=== PATIENT | male | born 1945 | race African-American/Black ===

== ENCOUNTER 2017-09-04 20:41 | Emergency (ER) | END 2017-09-05 00:03 | disposition home or self-care (01) ==

== ENCOUNTER 2017-11-20 14:14 | Emergency (ER) | END 2017-11-20 17:35 | disposition home or self-care (01) ==

== ENCOUNTER 2017-12-19 21:24 | Emergency (ER) | END 2017-12-20 03:46 | disposition short-term general hospital (02) ==

== ENCOUNTER 2018-08-02 15:17 | Inpatient (IN) | payer MEDICARE, OTHER ==
[~2018-08-02] VITALS: Ht 180.3 cm; Wt 97.4 kg
[~2018-08-02 15:17] MED LIST: LEVE100018 PO
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
[2018-08-02] MEDS ORDERED: ONDANSETRON 4 MG INJ IV PRN (20:00)
[2018-08-02] MEDS ORDERED: DOCUSATE SODIUM 100 MG CAP PO PRN (20:00)
[2018-08-02] MEDS ORDERED: BISACODYL (EC) 5 MG TAB PO PRN (20:00)
[2018-08-02] MEDS ORDERED: NACL 0.9% 3 ML SYG IV SCH (20:00)
[2018-08-02] MEDS ORDERED: ACETAMINOPHEN 325 MG TAB PO PRN (20:00)
--- NOTE | 2018-08-02 20:46 | HP ---
Date/Time of Note Date/Time of Note DATE: 08/02/18 TIME: 20:46 Assessment/Plan VTE Prophylaxis SCD applied (from Nsg): Yes Pharmacological prophylaxis: NA/contraindicated Pharm contraindication: low risk/ambulating Lines/Catheters IV Catheter Type (from Nrsg): Saline Lock Assessment/Plan Hospital Course This is a 73-year-old male being admitted to the telemetry floor for: #1 loss of consciousness: Secondary to syncope versus seizure episode versus other. Patient does report that he had urinary incontinence however he reports the ED physician that he did not. At the current time as patient is not able to give a proper history. We will work him up further. CT scan did not show any acute abnormalities. Will obtain an MRI of the brain with and without contrast to further evaluate. Seizure precautions, fall precautions. Will trend cardiac enzymes. Will obtain an echocardiogram. EKG did show bigeminy, will consult cardiology. PRN Ativan for seizures #2 history of CVA: Continue aspirin, statin #3 hypertension: Continue lisinopril #4 history of seizure disorder: Continue Keppra #5 history of prostate CA: Continue home medications. #6 DVT GI prophylaxis: SCDs, no GI prophylaxis indicated Result Diagram: 08/02/18 1608 08/02/18 1608 Results 24hrs Laboratory Tests Test 08/02/18 16:08 White Blood Count 6.4 Red Blood Count 4.51 L Hemoglobin 13.1 L Hematocrit 39.7 L Mean Corpuscular Volume 88.0 Mean Corpuscular Hemoglobin 29.0 Mean Corpuscular Hemoglobin Concent 33.0 Red Cell Distribution Width 13.1 Platelet Count 173 Mean Platelet Volume 10.4 Immature Granulocytes % 0.300 Neutrophils % 54.4 Lymphocytes % 34.5 Monocytes % 8.4 Eosinophils % 1.9 Basophils % 0.5 Nucleated Red Blood Cells % 0.0 Immature Granulocytes # 0.020 Neutrophils # 3.5 Lymphocytes # 2.2 Monocytes # 0.5 Eosinophils # 0.1 Basophils # 0.0 Nucleated Red Blood Cells # 0.0 Sodium Level 145 H Potassium Level 4.6 Chloride Level 112 H Carbon Dioxide Level 23 Anion Gap 10 Blood Urea Nitrogen 12 Creatinine 1.11 Est Glomerular Filtrat Rate mL/min Glucose Level 84 Calcium Level 9.3 Troponin I < 0.012 HPI/ROS Admit Date/Time Admit Date/Time Hx of Present Illness Chief complaint: Syncopal episode versus seizure The following history was obtained from the patient as well as from the ED physician documentation. This is a 73-year-old male presents to the emergency department from his [facility] by paramedics for evaluation of a loss of consciousness episode. Patient was in his usual state of health until prior to arrival which time he had a loss of consciousness episode. Patient apparently reported in the emergency department that day he thinks he may have had a seizure. He does report having urinary incontinence, he reported to the ED physician that he did not have any urinary incontinence.. He does get around using a wheelchair. He has had a history of a stroke in the past which resulted in weakness of the right upper and lower extremities. Allergies: NKDA Medications: See JESSICA BAIRES Const: As per HPI Eyes : No pain discharge or redness or change in visual acuity ENT: No pain, sore throat, congestion, congestion, dysphagia or discharge Respiratory: No shortness of breath, cough, sputum, wheezing, or pleuritic pain Cardiovascular: No chest pain, palpitation, PND, or edema GI : no change in appetite, abdominal pain, nausea, vomiting, diarrhea, constipation, or change in the color his stool Genitourinary: No dysuria, hematuria, flank pain , discharge or CVA tenderness Musculoskeletal: No joint pain, back pain, neck pain, restricted range of motion in neck or joints Skin: No rash, bruising or hives Neuro: As per HPI Endocrine: No polyuria, polydipsia, temperature intolerance Psych: No hallucination, depression, anxiety or suicidal ideation Additional Comments PROCEDURE: Noncontrast CT Head. CLINICAL INDICATION: Seizure TECHNIQUE: Noncontrast CT of the head was obtained. The administered radiation dose was CTDI vol = 39 mGy, DLP = 699 mGy-cm. DICOM images are available. One or more of the following dose reduction techniques were used: Automated exposure control, Adjustment of the mA and/or kV according to patient size, or Use of it erative reconstruction technique. COMPARISON: CT brain 03/21/[address] brain 12/19/2017 FINDINGS: There is no acute intracranial hemorrhage, midline shift, or mass effect. No extra-axial collection is seen. Focal encephalomalacia in the right anterior inferior frontal lobe likely chronic sequelae of prior trauma versus small chronic infarct appears stable. The cerebral bonilla-white matter differentiation otherwise appears preserved. There is mild to moderate diffuse cerebral volume loss with central predominance, stable. Minimal low attenuation in the periventricular and deep cerebral white matter is nonspecific, but suggestive of very mild chronic microangiopathic change. The basilar cisterns are preserved. There is mild diffuse cerebellar volume loss. A chronic infarct measuring approx imate 1.6 cm is redemonstrated in the right cerebellar hemisphere. There is intracranial calcific atherosclerotic disease involving the internal carotid arteries bilaterally. The partially imaged orbits are unremarkable. There is mild mucosal thickening in the left frontal sinus and left sphenoid sinus. No air-fluid level is seen. There is partial pneumatization of the petrous pyramids bilaterally. The visualized mastoid air cells are well-aerated. No acute calvarial fracture or suspicious osseous lesion is identified. IMPRESSION: 1. No evidence of an acute intracranial process. MRI brain seizure protocol may provide further evaluation, as clinically warranted. 2. Right anterior inferior frontal lobe focal encephalomalacia compatible with chronic sequelae of prior trauma versus chronic infarct, stable. 3. Right cerebellar hemisphere chronic infarct, stable. 4. Mild to moderate diffuse cerebral volume loss with central predominance, stable. 5. Evidence of very mild chronic microangiopathic cerebral white matter change. 6. Intracranial calcific atherosclerotic disease involving the internal carotid arteries bilaterally. 7. Mild mucosal thickening in the left frontal sinus and sphenoid sinus. No air- fluid level. Further findings described above. RPTAT: HRC Physician Axel Date Time Electronically viewed and signed by Physician Axel on 08/02/2018 17:19 RC/ CC: CLARICE HOWELL [id number] PROCEDURE: XR Chest. CLINICAL INDICATION: seizure TECHNIQUE: Single frontal view of the chest was obtained COMPARISON: 03/21/18 FINDINGS: The heart is enlarged. The thoracic aorta is calcified. The lungs are clear. There is no pleural effusion or pneumothorax. There are healed left posterior rib fractures. There is a healed right humeral neck fracture. RPTAT: AA IMPRESSION: Mild cardiomegaly. Calcified aorta consistent with atherosclerotic disease. .Nguyễn Herrera MD, MD Date Time Electronically viewed and signed by .Nguyễn Herrera MD, MD on 08/02/2018 16:12 .S/ CC: CLARICE HOWELL [phone] PMH/Family/Social Past Medical History Hypertension, seizure disorder, hyperlipidemia, prostate CA, history of CVA with residual right-sided weakness Medications Current Medications Levetiracetam (Keppra) 1,000 mg BID PO ; Start 08/02/18 at 21:00 IV Flush (NS 3 ml) 3 ml PER PROTOCOL IV ; Start 08/02/18 at 20:00 Ondansetron HCl (Zofran Inj) 4 mg Q6H PRN IV NAUSEA/VOMITING; Start 08/02/18 at 20:00 Acetaminophen (Tylenol Tab) 650 mg Q6H PRN PO .PAIN 1-3 OR TEMP; Start 08/02/18 at 20:00 Docusate Sodium (Colace) 100 mg Q12H PRN PO .CONSTIPATION; Start 08/02/18 at 20:00 Bisacodyl (Dulcolax) 5 mg DAILY PRN PO .CONSTIPATION; Start 08/02/18 at 20:00 Coded Allergies: No Known Allergy (Unverified , 08/02/18) Past Surgical History Aortic repair, vertebral surgery Family History Significant Family History: no pertinent family hx Social History Alcohol Use: none Smoking Status: Current every day smoker Drug Use: none Exam/Review of Systems Vital Signs Vitals Vital Signs Date Temp Pulse Resp B/P (MAP) Pulse Ox O2 O2 Flow FiO2 Time Delivery Rate 08/02/18 77 18 165/85 98 Room Air 17:25 (111) 08/02/18 98.2 15:27 Exam Exam General: patient is a pleasant male currently lying in bed in no acute distress HEENT: Atraumatic, normocephalic. The pupils are equal, round and reactive. Extraocular motor are intact Neck: Supple with full range of motion. No rigidity or meningismus Chest: Nontender Lungs: Clear to auscultation bilaterally no crackles rales or wheezing Heart: Normal S1-S2, Regular rhythm and rate. Abdomen: Soft , nontender, nondistended , bowel sounds are present. No guarding no rebound tenderness , No masses or organomegaly. No costovertebral temporal angle mass Extremities: Normal to inspection, no edema no cyanosis Neurologic: Normal mental status, speech normal, right upper and lower extremity strength 3/4 out of 5, left upper and lower extremity strength 5 out of 5 Additional Comments PROCEDURE: Noncontrast CT Head. CLINICAL INDICATION: Seizure TECHNIQUE: Noncontrast CT of the head was obtained. The administered radiation dose was CTDI vol = 39 mGy, DLP = 699 mGy-cm. DICOM images are available. One or more of the following dose reduction techniques were used: Automated exposure control, Adjustment of the mA and/or kV according to patient size, or Use of iterative reconstruction technique. COMPARISON: CT brain 03/21/[address] brain 12/19/2017 FINDINGS: There is no acute intracranial hemorrhage, midline shift, or mass effect. No extra-axial collection is seen. Focal encephalomalacia in the right anterior inferior frontal lobe likely chronic sequelae of prior trauma versus small chron ic infarct appears stable. The cerebral bonilla-white matter differentiation otherwise appears preserved. There is mild to moderate diffuse cerebral volume loss with central predominance, stable. Minimal low attenuation in the periventricular and deep cerebral white matter is nonspecific, but suggestive of very mild chronic microangiopathic change. The basilar cisterns are preserved. There is mild diffuse cerebellar volume loss. A chronic infarct measuring approximate 1.6 cm is redemonstrated in the right cerebellar hemisphere. There is intracranial calcific atherosclerotic disease involving the internal carotid arteries bilaterally. The partially imaged orbits are unremarkable. There is mild mucosal thickening in the left frontal sinus and left sphenoid sinus. No air-fluid level is seen. There is partial pneumatization of the petrous pyramids bilaterally. The visualized mastoid air cells are well-aerated. No acute calvarial fracture or suspicious osseous lesion is identified. IMPRESSION: 1. No evidence of an acute intracranial process. MRI brain seizure protocol may provide further evaluation, as clinically warranted. 2. Right anterior inferior frontal lobe focal encephalomalacia compatible with chronic sequelae of prior trauma versus chronic infarct, stable. 3. Right cerebellar hemisphere chronic infarct, stable. 4. Mild to moderate diffuse cerebral volume loss with central predominance, stable. 5. Evidence of very mild chronic microangiopathic cerebral white matter change. 6. Intracranial calcific atherosclerotic disease involving the internal carotid arteries bilaterally. 7. Mild mucosal thickening in the left frontal sinus and sphenoid sinus. No air-fluid level. Further findings described above. RPTAT: HRC Awilda Lima Physician Date Time Electronically viewed and signed by Awilda Lima, Physician on 08/02/2018 17:19 RC/ CC: CLARICE HOWELL [id number] PROCEDURE: XR Chest. CLINICAL INDICATION: seizure TECHNIQUE: Single frontal view of the chest was obtained COMPARISON: 03/21/18 FINDINGS: The heart is enlarged. The thoracic aorta is calcified. The lungs are clear. There is no pleural effusion or pneumothorax. There are healed left posterior rib fractures. There is a healed right humeral neck fracture. RPTAT: AA IMPRESSION: Mild cardiomegaly. Calcified aorta consistent with atherosclerotic disease. .Nguyễn Herrera MD, MD Date Time Electronically viewed and signed by .Nguyễn Herrera MD, MD on 08/02/2018 16:12 .S/ CC: CLARICE HOWELL [id number] K lead EKG Ventricular bigeminy Normal [place] and intervals No ST elevation, depression, or T wave inversion Impression: Bigeminy without evidence of ischemia GUZMAN KRUSE Aug 02, 2018 20:46
[2018-08-02] MEDS: LEVETIRACETAM 500 MG TAB PO SCH (22:28)
[2018-08-03] VITALS (15 sets, daily range): BP systolic 104–167; BP diastolic 53–106; PULSE 50–84; RESP 19–20; Ht 180.3 cm; Wt 97.4 kg
[2018-08-03] MEDS ORDERED: GABA300C16 PO (00:34)
[2018-08-03] MEDS ORDERED: OMEP20CA16 PO (00:34)
[2018-08-03] MEDS ORDERED: ALFU10TA2 PO (00:34)
[2018-08-03] MEDS ORDERED: ZOC10 PO (00:34)
[2018-08-03] MEDS ORDERED: LISI-471 PO (00:34)
[2018-08-03] MEDS ORDERED: ASPI-903 PO (00:34)
[2018-08-03] MEDS ORDERED: SODIUM CHLORIDE 0.45% 500 ML BAG IV* ONE (01:30)
[2018-08-03] MEDS ORDERED: LORAZEPAM 2 MG INJ IV PRN (04:30)
[2018-08-03] MEDS: PANTOPRAZOLE (EC) 40 MG TAB PO SCH (06:11)
[2018-08-03] MEDS ORDERED: NON-FORMULARY/PATIENT OWN MED (Omeprazole* 20 MG) PO SCH (09:00)
[2018-08-03] MEDS ORDERED: LISINOPRIL 20 MG TAB PO SCH (09:00)
[2018-08-03] MEDS: ASPIRIN 81 MG TAB PO SCH (09:10)
[2018-08-03] MEDS: LEVETIRACETAM 500 MG TAB PO SCH ×2 (09:10→20:54)
--- NOTE | 2018-08-03 14:02 | PN ---
Date/Time of Note Date/Time of Note DATE: 08/03/18 TIME: 13:48 Assessment/Plan VTE Prophylaxis Risk score (from Ns)>0 risk: 3 SCD applied (from Ns): Yes Pharmacological prophylaxis: LMWH Lines/Catheters IV Catheter Type (from Nrs): Saline Lock Urinary Cath still in place: No Assessment/Plan Assessment/Plan 1. Likely seizure spell, on keppra, follow up with neurology 2. Type 1 second degree AV block, asymptomatic, follow up with cardiology 3. h/o stroke, on aspirin and lipitor 4. HTN, controlled 5. h/o AVR 6. History of prostate CA 7. DVT prophylaxis: lovenox Result Diagram: 08/03/18 0542 08/03/18 0542 Results 24hrs Laboratory Tests Test 08/02/18 16:08 08/02/18 22:17 08/03/18 05:42 White Blood Count 6.4 6.9 Red Blood Count 4.51 L 4.81 Hemoglobin 13.1 L 13.7 L Hematocrit 39.7 L 41.6 L Mean Corpuscular Volume 88.0 86.5 Mean Corpuscular Hemoglobin 29.0 28.5 L Mean Corpuscular Hemoglobin Concent 33.0 32.9 Red Cell Distribution Width 13.1 12.8 Platelet Count 173 170 Mean Platelet Volume 10.4 10.7 H Immature Granulocytes % 0.300 0.300 Neutrophils % 54.4 56.0 Lymphocytes % 34.5 32.9 Monocytes % 8.4 8.9 Eosinophils % 1.9 1.6 Basophils % 0.5 0.3 Nucleated Red Blood Cells % 0.0 0.0 Immature Granulocytes # 0.020 0.020 Neutrophils # 3.5 3.9 Lymphocytes # 2.2 2.3 Monocytes # 0.5 0.6 Eosinophils # 0.1 0.1 Basophils # 0.0 0.0 Nucleated Red Blood Cells # 0.0 0.0 Sodium Level 145 H 144 Potassium Level 4.6 4.1 Chloride Level 112 H 108 Carbon Dioxide Level 23 24 Anion Gap 10 12 Blood Urea Nitrogen 12 13 Creatinine 1.11 1.00 Est Glomerular Filtrat Rate mL/min Glucose Level 84 79 Calcium Level 9.3 9.1 Troponin I < 0.012 0.012 0.017 Creatine Kinase 126 100 Creatine Kinase Index 1.0 1.2 Creatinine Kinase MB (Mass) 1.29 1.15 Hemoglobin A1c 6.0 H Magnesium Level 2.0 Total Bilirubin 0.5 Direct Bilirubin 0.00 Indirect Bilirubin 0.5 Aspartate Amino Transf (AST/SGOT) 28 Alanine Aminotransferase (ALT/SGPT) 17 Alkaline Phosphatase 172 H Total Protein 7.0 Albumin 3.6 Globulin 3.40 H Albumin/Globulin Ratio 1.05 Triglycerides Level 172 H Cholesterol Level 143 LDL Cholesterol, Calculated 79 HDL Cholesterol 30 L Cholesterol/HDL Ratio 4.7 Thyroid Stimulating Hormone (TSH) 2.760 Subjective 24 Hr Interval Summary Free Text/Dictation no headache, no chest pain, no shortness of breath Exam/Review of Systems Exam Vitals Vital Signs Date Temp Pulse Resp B/P (MAP) Pulse Ox O2 O2 Flow FiO2 Time Delivery Rate 08/03/18 97.9 70 20 137/94 97 11:41 (108) 08/03/18 Room Air 00:33 Intake and Output 08/02/18 08/02/18 08/03/18 1414:59 22:59 06:59 IntakeIntake Total 720 ml OutputOutput Total 400 ml BalanceBalance 320 ml Constitutional: alert, oriented, well developed Head: normocephalic, atraumatic Eyes: nl conjunctiva, EOMI, nl lids, PERRL ENMT: nl external ears & nose, nl lips & teeth, nl nasal mucosa & septum Neck: supple, non-tender Respiratory: clear to auscultation, normal air movement; No congested cough, No crackles/rales, No diminished breath sounds, No intercostal retraction, No labored breathing, No respirations, No tactile fremitus, No wheezing, No other Cardiovascular: regular rate and rhythm, nl pulses; No bruits, No diastolic murmur, No edema, No gallop, No irregular rhythm, No jugular venous distention (JVD), No murmurs/extra sounds, No rub, No systolic murmur, No S3, No S4, No other Gastrointestinal: soft, nl liver, spleen, non-tender Musculoskeletal: nl extremities to inspection Extremities: normal pulses; No calf tenderness, No cyanosis, No clubbing, No edema, No pitting pedal edema, No palpable cord, No tenderness, No other Neurological: SENIOR SUPPORT ANALYST II-XII intact, nl mental status, nl speech, other (RUE/RLE 4/5) Results Results 24hrs Laboratory Tests Test 08/02/18 16:08 08/02/18 22:17 08/03/18 05:42 White Blood Count 6.4 6.9 Red Blood Count 4.51 L 4.81 Hemoglobin 13.1 L 13.7 L Hematocrit 39.7 L 41.6 L Mean Corpuscular Volume 88.0 86.5 Mean Corpuscular Hemoglobin 29.0 28.5 L Mean Corpuscular Hemoglobin Concent 33.0 32.9 Red Cell Distribution Width 13.1 12.8 Platelet Count 173 170 Mean Platelet Volume 10.4 10.7 H Immature Granulocytes % 0.300 0.300 Neutrophils % 54.4 56.0 Lymphocytes % 34.5 32.9 Monocytes % 8.4 8.9 Eosinophils % 1.9 1.6 Basophils % 0.5 0.3 Nucleated Red Blood Cells % 0.0 0.0 Immature Granulocytes # 0.020 0.020 Neutrophils # 3.5 3.9 Lymphocytes # 2.2 2.3 Monocytes # 0.5 0.6 Eosinophils # 0.1 0.1 Basophils # 0.0 0.0 Nucleated Red Blood Cells # 0.0 0.0 Sodium Level 145 H 144 Potassium Level 4.6 4.1 Chloride Level 112 H 108 Carbon Dioxide Level 23 24 Anion Gap 10 12 Blood Urea Nitrogen 12 13 Creatinine 1.11 1.00 Est Glomerular Filtrat Rate mL/min Glucose Level 84 79 Calcium Level 9.3 9.1 Troponin I < 0.012 0.012 0.017 Creatine Kinase 126 100 Creatine Kinase Index 1.0 1.2 Creatinine Kinase MB (Mass) 1.29 1.15 Hemoglobin A1c 6.0 H Magnesium Level 2.0 Total Bilirubin 0.5 Direct Bilirubin 0.00 Indirect Bilirubin 0.5 Aspartate Amino Transf (AST/SGOT) 28 Alanine Aminotransferase (ALT/SGPT) 17 Alkaline Phosphatase 172 H Total Protein 7.0 Albumin 3.6 Globulin 3.40 H Albumin/Globulin Ratio 1.05 Triglycerides Level 172 H Cholesterol Level 143 LDL Cholesterol, Calculated 79 HDL Cholesterol 30 L Cholesterol/HDL Ratio 4.7 Thyroid Stimulating Hormone (TSH) 2.760 Medications Medication Current Medications Levetiracetam (Keppra) 1,000 mg BID PO Last administered on 08/03/18at 09:10; Admin Dose 1,000 MG; Start 08/02/18 at 21:00 IV Flush (NS 3 ml) 3 ml PER PROTOCOL IV ; Start 08/02/18 at 20:00 Ondansetron HCl (Zofran Inj) 4 mg Q6H PRN IV NAUSEA/VOMITING; Start 08/02/18 at 20:00 Acetaminophen (Tylenol Tab) 650 mg Q6H PRN PO .PAIN 1-3 OR TEMP; Start 08/02/18 at 20:00 Docusate Sodium (Colace) 100 mg Q12H PRN PO .CONSTIPATION; Start 08/02/18 at 20:00 Bisacodyl (Dulcolax) 5 mg DAILY PRN PO .CONSTIPATION; Start 08/02/18 at 20:00 Aspirin (Aspirin) 81 mg QAM PO Last administered on 08/03/18at 09:10; Admin Dose 81 MG; Start 08/03/18 at 09:00 Lisinopril (Zestril) 20 mg DAILY PO Last administered on 08/03/18at 09:10; Admin Dose 20 MG; Start 08/03/18 at 09:00 Pantoprazole (Protonix Tab) 40 mg DAILY@06 PO Last administered on 08/03/18at 06:11; Admin Dose 40 MG; Start 08/03/18 at 06:00 Atorvastatin Calcium (Lipitor) 10 mg DAILY@21 PO ; Start 08/03/18 at 21:00 Alfuzosin HCl (Uroxatral) 10 mg QHS PO ; Start 08/03/18 at 21:00 Lorazepam (Ativan) 1 mg Q2H PRN IV SEIZURES; Start 08/03/18 at 04:30 BHUPENDRA CAMARGO MD Aug 03, 2018 13:59
--- NOTE | 2018-08-03 15:18 | CONS ---
Assessment/Plan Assessment/Plan Hospital Course 73 M c/ prior stroke, epilepsy, and other comorbidities...who presents for evaluation following reported transient LOC. The clinical picture could be consistent w/ breakthrough seizure.. Syncope is additionally considered... The patient is noted to have a right hemiparesis w/ spasticity, which he confirms is chronic over several years... Head CT is without obvious acute intracranial pathology...though notable for predominantly right hemispheric chronic pathology.. P: OK to defer MRI brain for now Orthostatics Add Phos, UA, UDS Increase Keppra to 1.5 mg bid for now OK to continue Neurontin 600mg bid for now Ativan iv prn prolonged seizure or cluster Continue asa/statin daily for secondary stroke prevention PT/OT/ST as necessary Other management per primary Will follow clinically Consultation Date/Type/Reason Admit Date/Time Type of Consult Neurology Reason for Consultation LOC Requesting Provider: BHUPENDRA CAMARGO MD Date/Time of Note DATE: 08/03/18 TIME: 15:18 Hx of Present Illness 73 yo M with hx of stroke with residual R sided weakness and other comorbidities who presents for evaluation of a loss of consciousness. History was obtained from pt, HCP, and chart review. The pt endorses that his R side is weaker than usual. He confirms the story below: Hx of Present Illness Chief complaint: Syncopal episode versus seizure The following history was obtained from the patient as well as from the ED physician documentation. This is a 73-year-old male presents to the emergency department from his [facility] by paramedics for evaluation of a loss of consciousness episode. Patient was in his usual state of health until prior to arrival which time he had a loss of consciousness episode. Patient apparently reported in the emergency department that day he thinks he may have had a seizure. He does report having urinary incontinence, he reported to the ED physician that he did not have any urinary incontinence.. He does get around using a wheelchair. He has had a history of a stroke in the past which resulted in weakness of the right upper and lower extremities. negative unless noted otherwise in HPI Exam/Review of Systems Exam Vitals Vital Signs Date Temp Pulse Resp B/P (MAP) Pulse Ox O2 O2 Flow FiO2 Time Delivery Rate 08/03/18 61 12:00 08/03/18 97.9 20 137/94 97 11:41 (108) 08/03/18 Room Air 00:33 Intake and Output 08/02/18 08/02/18 08/03/18 1515:00 23:00 07:00 IntakeIntake Total 720 ml OutputOutput Total 400 ml BalanceBalance 320 ml Exam PE: Gen Appearance: No Apparent Distress HEENT: Normocephalic Cardiovascular: Regular rate Lungs: Clear bilaterally Abdomen: Soft Extremities: Dry NE: The patient was alert and oriented. Language was normal. Fund of knowledge was normal. Pupils were equal and reactive to light. There was no afferent pupillary defect. Visual felton were normal. Funduscopic examination was limited. Extra-ocular movements were full. Ptosis was absent. There was no nystagmus. Facial sensation was normal. Face was symmetric with normal strength. Hearing was intact. Palate movements were normal. Neck strength was normal. There was normal tongue bulk and speed of movement. Tone was normal. Muscle bulk was normal. I did not see fasciculations. R side was weak. Vibration sensation was normal. Temperature and pinprick sensation was normal. Rapid alternating movements were normal. There was no dysmetria. There was no intention tremor. Gait was deferred due to bedrest. Arm and leg reflexes were 2+ and symmetric. Cheung's sign was absent. Plantar responses were flexor. Results Result Diagram: 08/03/18 0542 08/03/18 0542 Results 24hrs Laboratory Tests Test 08/02/18 16:08 08/02/18 22:17 08/03/18 05:42 White Blood Count 6.4 6.9 Red Blood Count 4.51 L 4.81 Hemoglobin 13.1 L 13.7 L Hematocrit 39.7 L 41.6 L Mean Corpuscular Volume 88.0 86.5 Mean Corpuscular Hemoglobin 29.0 28.5 L Mean Corpuscular Hemoglobin Concent 33.0 32.9 Red Cell Distribution Width 13.1 12.8 Platelet Count 173 170 Mean Platelet Volume 10.4 10.7 H Immature Granulocytes % 0.300 0.300 Neutrophils % 54.4 56.0 Lymphocytes % 34.5 32.9 Monocytes % 8.4 8.9 Eosinophils % 1.9 1.6 Basophils % 0.5 0.3 Nucleated Red Blood Cells % 0.0 0.0 Immature Granulocytes # 0.020 0.020 Neutrophils # 3.5 3.9 Lymphocytes # 2.2 2.3 Monocytes # 0.5 0.6 Eosinophils # 0.1 0.1 Basophils # 0.0 0.0 Nucleated Red Blood Cells # 0.0 0.0 Sodium Level 145 H 144 Potassium Level 4.6 4.1 Chloride Level 112 H 108 Carbon Dioxide Level 23 24 Anion Gap 10 12 Blood Urea Nitrogen 12 13 Creatinine 1.11 1.00 Est Glomerular Filtrat Rate mL/min Glucose Level 84 79 Calcium Level 9.3 9.1 Troponin I < 0.012 0.012 0.017 Creatine Kinase 126 100 Creatine Kinase Index 1.0 1.2 Creatinine Kinase MB (Mass) 1.29 1.15 Hemoglobin A1c 6.0 H Magnesium Level 2.0 Total Bilirubin 0.5 Direct Bilirubin 0.00 Indirect Bilirubin 0.5 Aspartate Amino Transf (AST/SGOT) 28 Alanine Aminotransferase (ALT/SGPT) 17 Alkaline Phosphatase 172 H Total Protein 7.0 Albumin 3.6 Globulin 3.40 H Albumin/Globulin Ratio 1.05 Triglycerides Level 172 H Cholesterol Level 143 LDL Cholesterol, Calculated 79 HDL Cholesterol 30 L Cholesterol/HDL Ratio 4.7 Thyroid Stimulating Hormone (TSH) 2.760 Medications Medication Current Medications Levetiracetam (Keppra) 1,000 mg BID PO Last administered on 08/03/18at 09:10; Admin Dose 1,000 MG; Start 08/02/18 at 21:00 IV Flush (NS 3 ml) 3 ml PER PROTOCOL IV ; Start 08/02/18 at 20:00 Ondansetron HCl (Zofran Inj) 4 mg Q6H PRN IV NAUSEA/VOMITING; Start 08/02/18 at 20:00 Acetaminophen (Tylenol Tab) 650 mg Q6H PRN PO .PAIN 1-3 OR TEMP; Start 08/02/18 at 20:00 Docusate Sodium (Colace) 100 mg Q12H PRN PO .CONSTIPATION; Start 08/02/18 at 20:00 Bisacodyl (Dulcolax) 5 mg DAILY PRN PO .CONSTIPATION; Start 08/02/18 at 20:00 Aspirin (Aspirin) 81 mg QAM PO Last administered on 08/03/18at 09:10; Admin Dose 81 MG; Start 08/03/18 at 09:00 Lisinopril (Zestril) 20 mg DAILY PO Last administered on 08/03/18at 09:10; Admin Dose 20 MG; Start 08/03/18 at 09:00 Pantoprazole (Protonix Tab) 40 mg DAILY@06 PO Last administered on 08/03/18at 06:11; Admin Dose 40 MG; Start 08/03/18 at 06:00 Atorvastatin Calcium (Lipitor) 10 mg DAILY@21 PO ; Start 08/03/18 at 21:00 Alfuzosin HCl (Uroxatral) 10 mg QHS PO ; Start 08/03/18 at 21:00 Lorazepam (Ativan) 1 mg Q2H PRN IV SEIZURES; Start 08/03/18 at 04:30 Enoxaparin Sodium (Lovenox) 40 mg DAILY SC ; Start 08/04/18 at 09:00 Past Medical History reviewed Home Meds Active Scripts Levetiracetam* (Keppra*) 1,000 Mg Tablet, 1000 MG PO BID, #60 TAB Prov:MARINE WILLIS MD 11/20/17 Reported Medications Omeprazole* (Omeprazole*) 20 Mg Capsule.dr, 20 MG PO DAILY, #30 CAP 08/03/18 Aspirin* (Aspirin* Chew) 81 Mg Tab.chew, 81 MG PO QAM for STROKE, TAB.CHEW 08/03/18 Lisinopril* (Lisinopril*) 20 Mg Tablet, 20 MG PO DAILY for HTN, #30 TAB 08/03/18 Gabapentin* (Gabapentin*) 300 Mg Capsule, 600 MG PO BID for nerve pain, #60 CAP 08/03/18 Simvastatin (Simvastatin) 10 Mg Tablet, 10 MG PO QHS for Lower Cholesterol, #30 TAB 08/03/18 Alfuzosin Hcl* (Alfuzosin Hcl*) 10 Mg Tab.er.24h, 10 MG PO QHS for prostate, #30 TAB.SA 08/03/18 Medications Current Medications Levetiracetam (Keppra) 1,000 mg BID PO Last administered on 08/03/18at 09:10; Admin Dose 1,000 MG; Start 08/02/18 at 21:00 IV Flush (NS 3 ml) 3 ml PER PROTOCOL IV ; Start 08/02/18 at 20:00 Ondansetron HCl (Zofran Inj) 4 mg Q6H PRN IV NAUSEA/VOMITING; Start 08/02/18 at 20:00 Acetaminophen (Tylenol Tab) 650 mg Q6H PRN PO .PAIN 1-3 OR TEMP; Start 08/02/18 at 20:00 Docusate Sodium (Colace) 100 mg Q12H PRN PO .CONSTIPATION; Start 08/02/18 at 20:00 Bisacodyl (Dulcolax) 5 mg DAILY PRN PO .CONSTIPATION; Start 08/02/18 at 20:00 Aspirin (Aspirin) 81 mg QAM PO Last administered on 08/03/18at 09:10; Admin Dose 81 MG; Start 08/03/18 at 09:00 Lisinopril (Zestril) 20 mg DAILY PO Last administered on 08/03/18at 09:10; Admin Dose 20 MG; Start 08/03/18 at 09:00 Pantoprazole (Protonix Tab) 40 mg DAILY@06 PO Last administered on 08/03/18at 06:11; Admin Dose 40 MG; Start 08/03/18 at 06:00 Atorvastatin Calcium (Lipitor) 10 mg DAILY@21 PO ; Start 08/03/18 at 21:00 Alfuzosin HCl (Uroxatral) 10 mg QHS PO ; Start 08/03/18 at 21:00 Lorazepam (Ativan) 1 mg Q2H PRN IV SEIZURES; Start 08/03/18 at 04:30 Enoxaparin Sodium (Lovenox) 40 mg DAILY SC ; Start 08/04/18 at 09:00 Allergies: Coded Allergies: No Known Allergy (Unverified , 08/02/18) Past Surgical History reviewed Social History reviewed Alcohol Use: none Smoking Status: Current every day smoker Drug Use: none TOSHA MACK NP Aug 03, 2018 15:18 ELI BAH Aug 03, 2018 17:05
[2018-08-03] MEDS ORDERED: traZODone 50 MG TAB PO ONE (20:30)
[2018-08-03] MEDS ORDERED: NON-FORMULARY/PATIENT OWN MED (Simvastatin 10 MG) PO SCH (21:00)
[2018-08-03] MEDS ORDERED: ALFUZOSIN (SR) 10 MG TAB PO SCH (21:00)
[2018-08-03] MEDS ORDERED: ATORVASTATIN 10 MG TAB PO SCH (21:00)
--- NOTE | 2018-08-03 21:19 | RADRPT ---
Echocardiogram Report Patient Name: SHAY KIRBYPatient ID: [id number] : 1945 (73y 7m)Study Date: 08/03/2018 8:39:39 AM Gender: MAccession #: [id number] Tech: Sha Rutherford COTY Location: 8 Ref.Physician: GUZMAN KRUSE Height(Cm): BSA: Weight(Kg): Quality: AdequateAccount #: Procedures: Echocardiographic Report: Transthoracic echocardiogram with complete 2D, M-Mode, and doppler examination. Indications: Syncope. Measurements: 2D/M Mode Doppler Measurement Value Normal Range Measurement Value Normal Range LVIDd 2D 3.8 [ 4.2 - 5.8 ] cm AV Peak Michael 1.5 [ 100.0 - 170.0 ] cm/sec LVIDs 2D 2.5 [ 2.5 - 4.0 ] cm AV Peak PG 10.0 [ 2.0 - 9.0 ] mmHg LVPWd 2D 1.2 [ 0.6 - 1.0 ] cm LVOT Peak Michael 0.8 [ 70.0 - 110.0 ] cm/sec IVSd 2D 1.2 [ 0.6 - 1.0 ] cm LVOT Peak PG 3.0 [ 2.0 - 6.0 ] mmHg AoR Diam 2D 3.1 [ 2.6 - 3.4 ] cm MV E Peak Michael 0.4 [ 60.0 - 130.0 ] cm/sec EDV 2D 63.5 [ 62.0 - 150.0 ] ml MV A Peak Michael 0.8 [ 100.0 - 120.0 ] cm/sec ESV 2D 23.2 [ 21.0 - 61.0 ] ml MV E/A 0.6 [ 0.8 - 1.5 ] ratio EF 2D 63.5 [ 52.0 - 72.0 ] percent MV Decel Time 151 [ 104 - 258 ] msec LA Dimen 2D 2.4 [ 3.0 - 4.0 ] cm Lat E` Michael 0.1 [ 10.0 - 15.0 ] cm/sec Lateral E/E` 6.0 [ 1.0 - 2.0 ] ratio Med E` Michael 0.0 cm/sec MV E/A 0.6 [ 0.8 - 1.5 ] ratio Findings: Left Ventricle: Normal left ventricular systolic function. Normal left ventricular cavity size. Mild concentric left ventricular hypertrophy. Ejection fraction is visually estimated at 55-60 %. Tissue Doppler/Mitral Doppler indices are consistent with impaired relaxation (Stage I diastolic dysfunction). Right Ventricle: Normal right ventricular size. Normal right ventricular systolic function. Left Atrium: The left atrium is normal in size. Right Atrium: The right atrium is normal in size. Mitral Valve: Normal appearance and function of the mitral valve with trace physiologic regurgitation. Aortic Valve: No significant aortic stenosis or insufficiency. Aortic cusps appear mildly calcified. Tricuspid Valve: Normal appearance and function of the tricuspid valve with trace physiologic regurgitation. Normal right ventricular systolic pressure. Pulmonic Valve: Normal pulmonic valve appearance. Pericardium: Normal pericardium with no significant pericardial effusion. Aorta: Normal aortic root. IVC: Normal size and normal respiratory collapse consistent with normal right atrial pressure. Conclusions: Normal left ventricular systolic function. Normal left ventricular cavity size. Mild concentric left ventricular hypertrophy. Ejection fraction is visually estimated at 55-60 %. Tissue Doppler/Mitral Doppler indices are consistent with impaired relaxation (Stage I diastolic dysfunction). Normal appearance and function of the mitral valve with trace physiologic regurgitation. Normal appearance and function of the tricuspid valve with trace physiologic regurgitation. Normal right ventricular systolic pressure. Electronically Signed By: Gregg Gonzáles 2018-08-03 21:19:08 PDT
[2018-08-04] VITALS (10 sets, daily range): BP systolic 128–149; BP diastolic 80–92; PULSE 54–100; RESP 19–20
--- NOTE | 2018-08-04 01:39 | CONS ---
DATE OF ADMISSION: 08/02/2018 DATE OF CONSULTATION: 08/03/2018 REASON FOR CONSULTATION: Syncope. REQUESTING PHYSICIAN: Dr. Rayna Camargo HISTORY OF PRESENT ILLNESS: Mr. Street is a very pleasant 73-year-old male with a history of prior CVA , seizure disorder on Keppra, prostate CA, who presents status post a syncopal episode. The patient states he was in usual state of health when he states that he began to notice that he had difficulty focusing, which he says he notices before he has a seizure-like episode. So he tried to keep going. He felt like he ran into the wall and hit his head into the wall and is unsure what happened thereaf ter. The patient denied any prodrome with chest pain or shortness of breath. Upon arrival, temperature 98.2, blood pressure 190/79, pulse 87, respiratory rate 18, satting 98%. T he patient's labs: White cell count 6.4, hematocrit 21, platelet count of 173. Sodium 145, potassiu m 4.2, creatinine 1.1, BUN 12. Troponin negative. TSH of 2.76. Tox screen negative. UA negative. The patient underwent a carotid Doppler revealing no evidence for hemodynamically significant stenos is of the bilateral internal carotid arteries. A head CT revealed no evidence of acute intracranial process, right anteroinferior frontal lobe focal encephalomalacia, right cerebral hemisphere chronic infarct, mild to moderate diffuse cerebral volume loss. Chest x-ray revealed mild cardiomegaly. The patient's electrocardiogram revealed sinus rhythm, rate of 81 with PVCs in a pattern of bigeminy. The patient was subsequently admitted to the floor. Since admit to the floor, she has been monitored on telemetry revealing sinus rhythm, frequent PVCs in patterns of bigeminy, and additionally, he has had at times episodes of 2:1 AV block. The patient at this time denies chest pain or shortness of b reath. PAST MEDICAL HISTORY: As above in the HPI. MEDICATIONS CURRENTLY IN THE HOSPITAL: 1. Lovenox 40 mg subQ daily. 2. Lipitor 20 mg a.c. 3. Keppra mg b.i.d. 4. Aspirin 81 mg a day. 5. Zestril 20 mg daily. 6. Protonix 40 mg daily. 7. PRN Tylenol. 8. PRN Zofran. 9. PRN Colace. 10. PRN Dulcolax. ALLERGIES: NO KNOWN DRUG ALLERGIES. SOCIAL HISTORY: No current tobacco, EtOH or illicit drug use. FAMILY HISTORY: No history of sudden cardiac deaths or early CAD. REVIEW OF SYSTEMS: As above in the HPI. CONSTITUTIONAL: No fevers or chills. PULMONARY: No current shortness of breath. CARDIOVASCULAR: No current chest pain. PVCs. GASTROINTESTINAL: No vomiting. GENITOURINARY: No hematuria. MUSCULOSKELETAL: Degenerative joint disease. PSYCHIATRIC: The patient has depression. NEUROLOGIC: Positive history of CVA. ENDOCRINE: No documented history of diabetes mellitus. PHYSICAL EXAMINATION: VITAL SIGNS: Temperature of 98.5, blood pressure most recently of 154/76, pulse 82, respiratory rate 20, satting 97%. GENERAL: The patient is alert, awake. No acute distress. NECK: JVP approximately 8 to 9 cm of water. CHEST: Fair air movement throughout. HEART: Regular rate and rhythm. Frequent ectopic beats. ABDOMEN: Positive bowel sounds. Soft. EXTREMITIES: No significant pitting edema, 1+ pulses bilateral posterior tibial. LABORATORY DATA: Labs most recently from today: Sodium 144, potassium 4.1, creatinine 1, BUN 13. Hemoglobin A1c of 6. Troponin negative x3. White blood cell count 6.9, hemoglobin 13.7, platel et count of 170. IMAGING STUDIES: As above in the HPI. No further imaging studies for my review at this time. ELECTROCARDIOGRAM: As above in the HPI. No further electrocardiograms for my review at this time. IMPRESSION: 1. Syncope. Assess for cardiac etiology, rule out cardiac arrhythmia. 2. 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 3. Premature ventricular contractions in a pattern of bigeminy at times. Assess for cardiac ischemi a. 4. Seizure disorder. 5. Dyslipidemia. 6. Hypertension, uncontrolled. 7. History of cerebrovascular accident. RECOMMENDATIONS: 1. At this time, we would maintain the patient on telemetry monitoring to follow rhythm and rate con trol closely. 2. We will follow patient's 2D echo in order to assess ejection fraction, wall motion or any major v alve abnormalities that may be associated with the patient's syncopal episode. 3. We would make sure to keep the patient's potassium greater than 4 and magnesium greater than 2. 4. We will consider the possibility of a beta héctor to suppress frequent bouts of ectopy, but in t he setting of a 2:1 AV block, we will hold on this at this time. 5. We will consider a stress test in this patient to further assess for possible ischemia and/or sca r lending to ongoing bouts of bigeminy. 6. We will continue the patient's baseline Keppra and watch for any recurrent seizures. 7. We will continue the patient's aspirin for prophylaxis against cardiovascular events. Thank you for allowing me to take part in the care of this patient. I will continue to follow him al ivan very closely with you, with further recommendations to be made as the patient progresses through his inpatient hospital clinical course. Dictated By: PARISA SAMANIEGO/YOLIS Conf#: [id number] DID#: [id number] CC: NATHANAEL GOLDEN MD; RAYNA CAMARGO MD;*EndCC*
[2018-08-04] MEDS: PANTOPRAZOLE (EC) 40 MG TAB PO SCH (05:15)
[2018-08-04] MEDS: LEVETIRACETAM 500 MG TAB PO SCH (08:47)
[2018-08-04] MEDS: ASPIRIN 81 MG TAB PO SCH (08:48)
[2018-08-04] MEDS ORDERED: ENOXAPARIN 40 MG/0.4 ML SYG SC SCH (09:00)
[2018-08-04] MEDS ORDERED: LISINOPRIL 20 MG TAB PO SCH (09:00)
[2018-08-04] MEDS ORDERED: METOPROLOL 25 MG TAB PO SCH (09:00)
[2018-08-04] MEDS ORDERED: REGADENOSON 0.4 MG/5 ML SYG ONE (13:04)
--- NOTE | 2018-08-04 13:36 | CONS ---
Assessment/Plan Assessment/Plan Hospital Course 73 M c/ prior stroke, epilepsy, and other comorbidities...who presents for evaluation following reported transient LOC. The clinical picture could be consistent w/ breakthrough seizure.. Syncope is additionally considered... The patient is noted to have a right hemiparesis w/ spasticity, which he confirms is chronic over several years... Head CT is without obvious acute intracranial pathology...though notable for predominantly right hemispheric chronic pathology.. P: OK to defer MRI brain for now Await orthostatics Cont Keppra 1500mg bid for now OK to continue Neurontin 600mg bid for now Ativan iv prn prolonged seizure or cluster Cont asa/statin daily for secondary stroke prevention PT/OT/ST as necessary Other management per primary Will follow Consultation Date/Type/Reason Admit Date/Time Aug 02, 2018 at 18:32 Type of Consult Neurology Reason for Consultation LOC Requesting Provider: BHUPENDRA CAMARGO MD Date/Time of Note DATE: 08/04/18 TIME: 13:36 24 HR Interval Summary Free Text/Dictation Continues acute care. Exam Vital Signs Vitals Vital Signs Date Temp Pulse Resp B/P (MAP) Pulse Ox O2 O2 Flow FiO2 Time Delivery Rate 08/04/18 98.0 63 19 128/82 99 11:15 (97) 08/03/18 Room Air 00:33 Intake and Output 08/03/18 08/03/18 08/04/18 1515:00 23:00 07:00 IntakeIntake Total 1500 ml 200 ml OutputOutput Total 700 ml 600 ml BalanceBalance 800 ml -400 ml Exam PE: Gen Appearance: No Apparent Distress HEENT: Normocephalic Cardiovascular: Regular rate Lungs: Clear bilaterally Abdomen: Soft Extremities: Dry NE: The patient was alert and oriented. Language was normal. Fund of knowledge was normal. Pupils were equal and reactive to light. There was no afferent pupillary defect. Visual felton were normal. Funduscopic examination was limited. Extra-ocular movements were full. Ptosis was absent. There was no nystagmus. Facial sensation was normal. Face was symmetric with normal strength. Hearing was intact. Palate movements were normal. Neck strength was normal. There was normal tongue bulk and speed of movement. Tone was normal. Muscle bulk was normal. I did not see fasciculations. R side was weak. Vibration sensation was normal. Temperature and pinprick sensation was normal. Rapid alternating movements were normal. There was no dysmetria. There was no intention tremor. Gait was deferred due to bedrest. Arm and leg reflexes were 2+ and symmetric. Cheung's sign was absent. Plantar responses were flexor. TOSHA MACK NP Aug 04, 2018 13:36
--- NOTE | 2018-08-04 14:05 | CONS ---
Assessment/Plan Assessment/Plan Hospital Course (Demo Recall) IMPRESSION: 1. Syncope. Assess for cardiac etiology, rule out cardiac arrhythmia.-By history more c/w with recurrent seziure episode than cardiac arrythmia 2. 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 3. Premature ventricular contractions in a pattern of bigeminy at times. Assess for cardiac ischemia. 4. Seizure disorder. 5. Dyslipidemia. 6. Hypertension, uncontrolled. 7. History of cerebrovascular accident. Recc: -Tele -serial ecg's -No recurrent 2:1 AVB that I see as strips in chart and tolerated low dose BB this am for supresion of further bouts bigeminy/PVC -Lexiscan strss test today to asess for ischemic etiology to PVC's. and if no ischemia and no further epsiodes of heart block then ok from cardiac stndpoint for d/c -Continue low dose BB/ACEI as tolerated only -Continue statin Consultation Date/Type/Reason Admit Date/Time Aug 02, 2018 at 18:32 Initial Consult Date 10/03/18 Type of Consult Cardiology Reason for Consultation PVC Requesting Provider: BHUPENDRA CAMARGO MD Date/Time of Note DATE: 08/04/18 TIME: 13:56 Exam/Review of Systems Vital Signs Vitals Vital Signs Date Temp Pulse Resp B/P (MAP) Pulse Ox O2 O2 Flow FiO2 Time Delivery Rate 08/04/18 98.0 63 19 128/82 99 11:15 (97) 08/03/18 Room Air 00:33 Intake and Output 08/03/18 08/03/18 08/04/18 1414:59 22:59 06:59 IntakeIntake Total 1500 ml 200 ml OutputOutput Total 700 ml 600 ml BalanceBalance 800 ml -400 ml Exam Exam Review of Systems: CONSTITUTIONAL: No fevers, chills. PULMONARY: No sob CARDIOVASCULAR: No chest pain/palpitations GASTROINTESTINAL: No nausea/vomiting. GENITOURINARY: No hematuria/dysuria. MUSCULOSKELETAL: No myagias/arthalgias. PSYCHIATRIC: The patient denies depression. NEUROLOGIC: No weakness Constitutional: alert Psych: no complaints Head: normocephalic ENMT: mucosa pink and moist Neck: non-tender, jvd Respiratory: clear to auscultation Cardiovascular: regular rate and rhythm Gastrointestinal: soft, non-tender Musculoskeletal: muscle tone (normal) Extremities: edema (none) Neurological: other (No focal deficits) Labs Result Diagram: 08/03/18 0542 08/03/18 0542 Results 24hrs Laboratory Tests Test 08/03/18 17:30 08/04/18 05:16 Urine Color YELLOW Urine Clarity CLEAR Urine pH 5.0 Urine Specific [place] 1.023 Urine Ketones NEGATIVE Urine Nitrite NEGATIVE Urine Bilirubin NEGATIVE Urine Urobilinogen 2+ H Urine Leukocyte Esterase NEGATIVE Urine Hemoglobin NEGATIVE Urine Glucose NEGATIVE Urine Total Protein NEGATIVE Urine Opiates Screen Negative Urine Barbiturates Negative Urine Amphetamines Screen Negative Urine Benzodiazepines Screen Negative Urine Cocaine Screen Negative Urine Cannabinoids Negative Free Thyroxine 1.16 Medications Medications Current Medications IV Flush (NS 3 ml) 3 ml PER PROTOCOL IV ; Start 08/02/18 at 20:00 Ondansetron HCl (Zofran Inj) 4 mg Q6H PRN IV NAUSEA/VOMITING; Start 08/02/18 at 20:00 Acetaminophen (Tylenol Tab) 650 mg Q6H PRN PO .PAIN 1-3 OR TEMP Last administered on 08/03/18at 19:07; Admin Dose 650 MG; Start 08/02/18 at 20:00 Docusate Sodium (Colace) 100 mg Q12H PRN PO .CONSTIPATION; Start 08/02/18 at 20:00 Bisacodyl (Dulcolax) 5 mg DAILY PRN PO .CONSTIPATION; Start 08/02/18 at 20:00 Aspirin (Aspirin) 81 mg QAM PO Last administered on 08/04/18at 08:48; Admin Dose 81 MG; Start 08/03/18 at 09:00 Pantoprazole (Protonix Tab) 40 mg DAILY@06 PO Last administered on 08/04/18at 05:15; Admin Dose 40 MG; Start 08/03/18 at 06:00 Atorvastatin Calcium (Lipitor) 10 mg DAILY@21 PO Last administered on 08/03/18at 20:54; Admin Dose 10 MG; Start 08/03/18 at 21:00 Alfuzosin HCl (Uroxatral) 10 mg QHS PO Last administered on 08/03/18at 20:54; Admin Dose 10 MG; Start 08/03/18 at 21:00 Lorazepam (Ativan) 1 mg Q2H PRN IV SEIZURES; Start 08/03/18 at 04:30 Enoxaparin Sodium (Lovenox) 40 mg DAILY SC Last administered on 08/04/18 08:55; Admin Dose 40 MG; Start 08/04/18 at 09:00 Levetiracetam (Keppra) 1,500 mg BID PO Last administered on 08/04/18 08:47; Admin Dose 1,500 MG; Start 08/03/18 at 21:00 Lisinopril (Zestril) 20 mg BID PO Last administered on 08/04/18 08:48; Admin Dose 20 MG; Start 08/04/18 at 09:00 Metoprolol Tartrate (Lopressor) 12.5 mg BID PO Last administered on 08/04/18 08:48; Admin Dose 12.5 MG; Start 08/04/18 at 09:00 PARISA GAMBOA Aug 04, 2018 14:05
[2018-08-04] MEDS ORDERED: LEVE-5 PO (15:22)
--- NOTE | 2018-08-04 15:22 | CARRPT ---
DATE OF PROCEDURE: 08/04/2018 REASON FOR STRESS TESTING: Syncope, PVCs, assess for ischemia. BASELINE VITAL SIGNS AND ELECTROCARDIOGRAM: Pulse 60, blood pressure 153/85. Electrocardiogram reveals a sinus rhythm, rate of 72, normal axis and intervals with PVCs at times in a pattern of bigeminy. PROCEDURE: The patient underwent standard Lexiscan infusion protocol over 10 seconds followed by radiotracer. The patient's test was stopped due to completion of protocol. Maximal achieved blood pressure during the test 152/86. Maximal achieved heart rate during test 89. ELECTROCARDIOGRAM FINDINGS: The patient did not developed any new Lexiscan- induced ST-T changes from baseline abnormalities. The patient had frequent premature ventricular contractions during stress testing. SYMPTOMS: Patient had no complaints of chest pain or shortness of breath during stress testing. IMPRESSION: 1. No Lexiscan-induced ST or T-wave changes from baseline abnormalities diagnostic for ischemia. 2. No complaints of chest pain or shortness of breath during stress testing. 3. Frequent PVCs throughout stress testing, but also present before. 4. Nuclear images to follow in separate dictation. Dictated By: PARISA SAMANIEGO/YOLIS Conf#: [id number] DID#: [id number] CC: NATHANAEL GOLDEN MD;*EndCC* MTDD
--- NOTE | 2018-08-04 15:35 | DS ---
Date/Time of Note Date/Time of Note DATE: 08/04/18 TIME: 15:27 Discharge Summary Admission/Discharge Info Admit Date/Time Aug 04, 2018 at 15:00 Discharge Date/Time Discharge Diagnosis 1. Seizure disorder with breakthrough seizure, increase keppra, follow up with neurology 2. Type 1 second degree AV block, asymptomatic, negative stress thallium test, follow up with cardiology 3. h/o stroke, on aspirin and statin 4. HTN, controlled 5. h/o AVR 6. History of prostate CA Patient Condition: Stable Hospital Course This is a 73-year-old male presents to the emergency department from [facility] by paramedics for evaluation of a loss of consciousness episode. Patient was in his usual state of health until prior to arrival which time he had a loss of consciousness episode. Patient apparently reported in the emergency department that day he thinks he may have had a seizure. He does report having urinary incontinence, he reported to the ED physician that he did not have any urinary incontinence.. He does get around using a wheelchair. He has had a history of a stroke in the past which resulted in weakness of the right upper and lower extremities. CT head no acute changes. Carotid US unremarkable. The event is considered a breakthrough seizure that neurologist recommends increasing keppra. No further seizure activity after admission. ECG monitoring revealed runs of type 1 2nd degree AVB but patient is asymptomatic. No further treatment needed. Train Driver ordered stress test that is unremarkable. ROCEDURE: Noncontrast CT Head. CLINICAL INDICATION: Seizure TECHNIQUE: Noncontrast CT of the head was obtained. The administered radiation dose was CTDI vol = 39 mGy, DLP = 699 mGy-cm. DICOM images are available. One or more of the following dose reduction techniques were used: Automated exposure control, Adjustment of the mA and/or kV according to patient size, or Use of iterative reconstruction technique. COMPARISON: CT brain 03/21/[address] brain 12/19/2017 FINDINGS: There is no acute intracranial hemorrhage, midline shift, or mass effect. No extra-axial collection is seen. Focal encephalomalacia in the right anterior inferior frontal lobe likely chronic sequelae of prior trauma versus small chronic infarct appears stable. The cerebral bonilla-white matter differentiation otherwise appears preserved. There is mild to moderate diffuse cerebral volume loss with central predominance, stable. Minimal low attenuation in the periventricular and deep cerebral white matter is nonspecific, but suggestive of very mild chronic microangiopathic change. The basilar cisterns are preserved. There is mild diffuse cerebellar volume loss. A chronic infarct measuring approximate 1.6 cm is redemonstrated in the right cerebellar hemisphere. There is intracranial calcific atherosclerotic disease involving the internal carotid arteries bilaterally. The partially imaged orbits are unremarkable. There is mild mucosal thickening in the left frontal sinus and left sphenoid sinus. No air-fluid level is seen. There is partial pneumatization of the petrous pyramids bilaterally. The visualized mastoid air cells are well-aerated. No acute calvarial fracture or suspicious osseous lesion is identified. IMPRESSION: 1. No evidence of an acute intracranial process. MRI brain seizure protocol may provide further evaluation, as clinically warranted. 2. Right anterior inferior frontal lobe focal encephalomalacia compatible with chronic sequelae of prior trauma versus chronic infarct, stable. 3. Right cerebellar hemisphere chronic infarct, stable. 4. Mild to moderate diffuse cerebral volume loss with central predominance, stable. 5. Evidence of very mild chronic microangiopathic cerebral white matter change. 6. Intracranial calcific atherosclerotic disease involving the internal carotid arteries bilaterally. 7. Mild mucosal thickening in the left frontal sinus and sphenoid sinus. No air- fluid level. Further findings described above. RPTAT: [facility] Physician Axel Date Time Electronically viewed and signed by Physician Axel on 08/02/2018 17:19 Home Meds Active Scripts Levetiracetam* (Keppra*) 500 Mg Tablet, 1500 MG PO BID for 30 Days, TAB Prov:BHUPENDRA CAMARGO MD 08/04/18 Reported Medications Omeprazole* (Omeprazole*) 20 Mg Capsule.dr, 20 MG PO DAILY, #30 CAP 08/03/18 Aspirin* (Aspirin* Chew) 81 Mg Tab.chew, 81 MG PO QAM for STROKE, TAB.CHEW 08/03/18 Lisinopril* (Lisinopril*) 20 Mg Tablet, 20 MG PO DAILY for HTN, #30 TAB 08/03/18 Gabapentin* (Gabapentin*) 300 Mg Capsule, 600 MG PO BID for nerve pain, #60 CAP 08/03/18 Simvastatin (Simvastatin) 10 Mg Tablet, 10 MG PO QHS for Lower Cholesterol, #30 TAB 08/03/18 Alfuzosin Hcl* (Alfuzosin Hcl*) 10 Mg Tab.er.24h, 10 MG PO QHS for prostate, #30 TAB.SA 08/03/18 Discontinued Scripts Levetiracetam* (Keppra*) 1,000 Mg Tablet, 1000 MG PO BID, #60 TAB Prov:MARINE WILLIS MD 11/20/17 Follow-up Plan PCP, neurology and cardiology follow up in one week Primary Care Provider Care Physician No Primary Pending Labs Laboratory Tests Test 08/03/18 17:30 08/04/18 05:16 Urine Color YELLOW (YELLOW) Urine Clarity CLEAR (CLEAR) Urine pH 5.0 (5.0-9.0) Urine Specific [place] 1.023 (1.003-1.030) Urine Ketones NEGATIVE mg/dL (NEGATIVE) Urine Nitrite NEGATIVE mg/dL (NEGATIVE) Urine Bilirubin NEGATIVE mg/dL (NEGATIVE) Urine Urobilinogen 2+ mg/dL (NEGATIVE) Urine Leukocyte Esterase NEGATIVE Denisa/ul Urine Hemoglobin NEGATIVE mg/dL (NEGATIVE) Urine Glucose NEGATIVE mg/dL (NEGATIVE) Urine Total Protein NEGATIVE mg/dl (NEGATIVE) Urine Opiates Screen Negative (NEGATIVE) Urine Barbiturates Negative (NEGATIVE) Urine Amphetamines Screen Negative (NEGATIVE) Urine Benzodiazepines Screen Negative (NEGATIVE) Urine Cocaine Screen Negative (NEGATIVE) Urine Cannabinoids Negative (NEGATIVE) Free Thyroxine 1.16 ng/dl (0.78-2.44) BHUPENDRA CAMARGO MD Aug 04, 2018 15:35
== END 2018-08-04 19:20 | disposition home or self-care (01) | DRG 101 ==
LOC: E/R 15:17 → INTOOBSV 18:32 → 6WM 18:32 → OBSVTOIN 08-04 15:00
PROVIDERS: ADMIT Internal Medicine; ATTEND Internal Medicine
DX: G40.909 Epilepsy, unspecified, not intractable, without status epilepticus (principal); I44.1 Atrioventricular block, second degree; I10 Essential (primary) hypertension; Z95.2 Presence of prosthetic heart valve; Z85.46 Personal history of malignant neoplasm of prostate; R51 Headache; R07.9 Chest pain, unspecified; Z72.0 Tobacco use; R00.8 Other abnormalities of heart beat; R55 Syncope and collapse; Z86.73 Personal history of transient ischemic attack (TIA), and cerebral infarction without residual deficits
CPT/HCPCS: 70450; 71045; 78452; 80048; 80053; 80061; 80307; 81003; 82550; 82553; 83036; 83735; 84100; 84439; 84443; 84484; 85025; 93005; 93017; 93306; 93880; 97116; 97162; 97167; 97530; 99217; G0378; A9500; A9505; J1650; J2785